=== PATIENT | male | born 1935 | race Caucasian/White ===

== ENCOUNTER 2021-11-28 18:13 | Emergency (ER) | payer OTHER ==
[~2021-11-28] VITALS: Ht 172.7 cm; Wt 90.7 kg
[~2021-11-28 18:13] MED LIST: AMLO5 PO; BENZ100A PO; CHLO25B PO; CODACE30 PO; DILAUDID; ELIQUIS5 MG PO; FINA5 PO; FLUN25SP; FURO20 PO; HYDMOR2 PO; HYDR1TAB94 PO; LAVAP17G PO; LIDO700A20 TOP; METO25ER PO; OMEP20ER PO; ONDA4 PO; POTA10T PO; PRED20 PO; Prinivil10 MG PO; SIMV40 PO; TAMS.4ER PO; TERA5 PO; Vitamin B-121000 MCG PO; Vitamin D2000 UNIT PO
[2021-11-28] MEDS ORDERED: HYDR10EL60 (18:56)
[2021-11-28] MEDS ORDERED: Ferrous Glucon324 M1 PO (19:00)
[2021-11-28] MEDS ORDERED: ERGO400 PO (19:03)
== END 2021-11-28 19:41 | disposition home or self-care (01) ==
LOC: ER 18:13
DX: M54.2 Cervicalgia (principal); G89.29 Other chronic pain; Z98.1 Arthrodesis status; M54.30 Sciatica, unspecified side; I48.0 Paroxysmal atrial fibrillation; Z79.01 Long term (current) use of anticoagulants; I10 Essential (primary) hypertension; E78.5 Hyperlipidemia, unspecified; K21.9 Gastro-esophageal reflux disease without esophagitis; N40.0 Benign prostatic hyperplasia without lower urinary tract symptoms; E66.9 Obesity, unspecified; Z68.30 Body mass index [BMI] 30.0-30.9, adult; Z88.0 Allergy status to penicillin; Z88.2 Allergy status to sulfonamides; Z88.8 Allergy status to other drugs, medicaments and biological substances; Z79.899 Other long term (current) drug therapy
CPT/HCPCS: 93005; 93010; 99283-25; A9270